=== PATIENT | female | born 1985 | race Caucasian/White ===

== ENCOUNTER 2020-08-08 11:00 | Day surgery (SDC) | payer MEDICAID ==
[2020-07-31 14:21] LABS: BASOPHILS # (AUTO) 0.1 X10'3 (0-0.2); EOSINOPHILS # (AUTO) 0.1 X10'3 (0-0.9); EOSINOPHILS % (AUTO) 1.3 % (0-6); LYMPHOCYTES # (AUTO) 2.1 X10'3 (1.1-4.8); LYMPHOCYTES % (AUTO) 40.1 % (21-51); MEAN CORPUSCULAR HEMOGLOBIN 29.9 PG (27.0-31.0); MEAN CORPUSCULAR HGB CONC 33.7 g/dL (33.0-36.5); MEAN CORPUSCULAR VOLUME 88.9 FL (78-98); MEAN PLATELET VOLUME 8.5 FL (7.4-10.4); MONOCYTES # (AUTO) 0.3 X10'3 (0-0.9); MONOCYTES % (AUTO) 6.3 % (2-12); NEUTROPHILS # (AUTO) 2.7 X10'3 (1.8-7.7); NEUTROPHILS % (AUTO) 51.3 % (42-75); PRE OP HEMATOCRIT 39.5 % (35.0-45.0); PRE OP HEMOGLOBIN 13.3 g/dL (12.0-16.0); PRE OP PLATELET COUNT 244 X10'3 (140-440); RED BLOOD COUNT 4.45 X10'6 (4.20-5.60); RED CELL DISTRIBUTION WIDTH 13.2 % (11.5-14.5)
[2020-07-31 14:36] LABS: ALBUMIN 3.9 G/DL (3.4-5.0); ALBUMIN/GLOBULIN RATIO 1.4 (1.1-1.5); ALKALINE PHOSPHATASE 33 IU/L (46-116); BLOOD UREA NITROGEN 11 MG/DL (7-18); BUN/CREATININE RATIO 13.8 (6.6-38.0); CALCIUM 8.9 MG/DL (8.5-10.1); CHLORIDE 106 MMOL/L (99-107); PRE OP ALT 20 U/L (30-65); PRE OP ANION GAP 7 (8-16); PRE OP AST 13 U/L (10-37); PRE OP BILIRUB, TOTAL 0.5 MG/DL (0.0-1.0); PRE OP GLUCOSE 93 MG/DL (70-104); PRE OP POTASSIUM 3.9 MMOL/L (3.4-5.1); PRE OP SODIUM 140 MMOL/L (135-145); TOTAL CARBON DIOXIDE 27.4 MMOL/L (24-32); TOTAL PROTEIN 6.6 G/DL (6.4-8.2); eGFR 82 ML/MIN
[2020-08-08] VITALS (8 sets, daily range): BP systolic 117–135; BP diastolic 66–79
[~2020-08-08] VITALS: Ht 175.3 cm; Wt 64.1 kg
[~2020-08-08 11:00] MED LIST: NO HOME MEDS; VANCOMYCIN INJ 1000 MG in NORMAL SALINE 250ml IV.SOLN IV ONE; ceFAZolin 2gm in dextrose, iso 50 ML IV ONE; famotidine 20mg tablet PO ONE; ringers solution, lacted 1,000 ML IV SCH
[2020-08-08] MEDS ORDERED: acetaminophen 1,000mg/100ml IV 100 ML IV PRN (13:15)
[2020-08-08] MEDS ORDERED: morphine 4 MG/ML inj SYRINge IV PRN (13:15)
[2020-08-08] MEDS ORDERED: meperidine/PF 25mg/ml syringe IV PRN ×3 (13:15)
[2020-08-08] MEDS ORDERED: morphine 2 MG/ML inj. syringe IV PRN (13:15)
[2020-08-08] MEDS ORDERED: proCHLORperazine 10 MG/2 ml inj IV PRN (13:15)
[2020-08-08] MEDS ORDERED: ondansetron/PF 4mg/2ml inj IV PRN (13:15)
[2020-08-08] MEDS ORDERED: ringers solution, lacted 1,000 ML IV SCH (13:15)
[2020-08-08] MEDS ORDERED: triamcinolone acetonide 40mg/ml inj ONE (13:27)
[2020-08-08] MEDS ORDERED: BUPIVAcaine/PF 2.5 mg/ml (0.25%) 30ml vial ONE (13:27)
[2020-08-08] MEDS ORDERED: fentaNYL/PF 50MCG/1 ML 2ML syringe ONE (13:43)
[2020-08-08] MEDS ORDERED: midazolam 2 mg/2 ml injection ONE (13:44)
[2020-08-08] MEDS ORDERED: dexamethasone sod phosphate 4mg/ml inj. ONE (13:59)
[2020-08-08] MEDS ORDERED: LIDOcaine 2% (20mg/ml) 5ml vial ONE (13:59)
[2020-08-08] MEDS ORDERED: propofol inj 20 ML IV ONE (13:59)
--- NOTE | 2020-08-08 14:50 | NUR ---
Received from OR via stefano, accompanied by Anesthesiologist Kayden and report given by Anesthesiolgist. Left knee is wrapped and CDI. Distal pulses present and pt able to move toes. IVF LR at 100cc/hr. All VS WNL, mask to 10L.
--- NOTE | 2020-08-08 16:00 | NUR ---
Reviewed DC instructions with patient after IV DC'd and patient dressed her own belongings, ambulated and tolerated fluids. Knee remains CDI. Pt verbalized understanding of all DC instructions.
== END 2020-08-08 16:00 | disposition home or self-care (01) ==
LOC: PAS 11:00
PROVIDERS: ATTEND Orthopaedic Surgery
DX: S83.242A Other tear of medial meniscus, current injury, left knee, initial encounter (principal); S83.282A Other tear of lateral meniscus, current injury, left knee, initial encounter; M94.262 Chondromalacia, left knee; M17.0 Bilateral primary osteoarthritis of knee; Z72.89 Other problems related to lifestyle; Z79.82 Long term (current) use of aspirin; Z79.899 Other long term (current) drug therapy; Z20.828 Contact with and (suspected) exposure to other viral communicable diseases; X58.XXXA Exposure to other specified factors, initial encounter; Y93.89 Activity, other specified; Y92.89 Other specified places as the place of occurrence of the external cause; Y99.8 Other external cause status
CPT/HCPCS: 29873; 29879; 29880; 36415; 80053; 82948; 85025; 87635; J1100; J2001; J2175; J2250; J2704; J3010; J3301; J3370; J3490; A4215; A4618; A6250; A6449; A7000; J7120